=== PATIENT | female | born 1980 | race Caucasian/White ===

== ENCOUNTER 2020-04-23 08:24 | Emergency (ER) | payer OTHER ==
[~2020-04-23] VITALS: Ht 165.1 cm; Wt 95.3 kg
[~2020-04-23 08:24] MED LIST: AMOXICILLIN 50500 MG PO
[2020-04-23] MEDS ORDERED: FLEXERIL PO (08:38)
[2020-04-23] MEDS ORDERED: NORCO 5-325 TA1 EAC1 PO (08:38)
[2020-04-23 08:48] VITALS: BP 137/86
== END 2020-04-23 08:48 | disposition home or self-care (01) ==
LOC: M.ERS 08:24
DX: M43.6 Torticollis (principal); Z98.890 Other specified postprocedural states; Z98.51 Tubal ligation status

== ENCOUNTER 2021-02-07 07:19 | Emergency (ER) | payer OTHER ==
[~2021-02-07] VITALS: Ht 165.1 cm; Wt 102.1 kg
[~2021-02-07 07:19] MED LIST changes: +FLEXERIL PO; +NORCO 5-325 TA1 EAC1 PO
[2021-02-07] MEDS ORDERED: PREDNISONE 20 M20 M1 PO (08:36)
[2021-02-07] MEDS ORDERED: PROMETH-CODEIN 65 ML PO (08:36)
[2021-02-07] MEDS ORDERED: ZPAK PO (08:36)
[2021-02-07] MEDS ORDERED: VENTOLIN HFA 1818 GM INH (08:36)
[2021-02-07 08:43] VITALS: BP 151/70
== END 2021-02-07 08:44 | disposition home or self-care (01) ==
LOC: M.ERS 07:19
DX: J98.01 Acute bronchospasm (principal); J40 Bronchitis, not specified as acute or chronic; Z98.890 Other specified postprocedural states; Z98.51 Tubal ligation status